=== PATIENT | female | born 1960 | race African-American/Black ===

== ENCOUNTER 2019-08-25 12:27 | Outpatient (CLI) | payer OTHER ==
--- NOTE | 2019-08-25 12:51 | RAD ---
Chest 2 views HISTORY: Dyspnea. FINDINGS: Cardiac silhouette is unremarkable. Pulmonary vasculature is engorged with widespread retic ulonodular interstitial prominence. Mediastinum is midline. No confluent airspace consolidation or evidence of pneumothorax. No pleural fluid evident. IMPRESSION: Pulmonary vascular congestion without cardiomegaly.
== END 2019-08-25 12:28 | disposition home or self-care (01) ==
LOC: NAV RAD 12:27
PROVIDERS: ATTEND Family Medicine
DX: I50.9 Heart failure, unspecified (principal); R09.89 Other specified symptoms and signs involving the circulatory and respiratory systems
CPT/HCPCS: 71046